=== PATIENT | female | born 1995 | race Caucasian/White ===

== ENCOUNTER 2017-10-24 13:34 | Emergency (ER) | payer OTHER ==
[~2017-10-24] VITALS: Ht 167.6 cm; Wt 68.0 kg
[2017-10-24 13:38] VITALS: BP 122/73
== END 2017-10-24 14:47 | disposition home or self-care (01) ==
LOC: ER 13:37
DX: N61.0 Mastitis without abscess (principal); R51 Headache
CPT/HCPCS: A4606; Z7610

== ENCOUNTER 2018-03-31 20:47 | Emergency (ER) | payer OTHER ==
[~2018-03-31] VITALS: Ht 167.6 cm; Wt 78.0 kg
[2018-03-31 20:56] VITALS: BP 134/75
== END 2018-03-31 22:56 | disposition home or self-care (01) ==
LOC: ER 20:51
DX: L03.031 Cellulitis of right toe (principal)
CPT/HCPCS: A4606; Z7610

== ENCOUNTER 2018-05-30 13:04 | Emergency (ER) | payer OTHER ==
[~2018-05-30] VITALS: Ht 165.1 cm; Wt 86.2 kg
[2018-05-30 13:22] VITALS: BP 128/76
== END 2018-05-30 14:00 | disposition home or self-care (01) ==
LOC: ER 13:06
DX: L03.031 Cellulitis of right toe (principal)
CPT/HCPCS: 99283; A4606; Z7610

== ENCOUNTER 2019-07-17 20:11 | Emergency (ER) | payer OTHER ==
[~2019-07-17] VITALS: Ht 167.6 cm; Wt 77.1 kg
[2019-07-17] MEDS ORDERED: ACETAMINOPHEN 650 MG/20.3 ML UDC ONE (21:04)
[2019-07-17] MEDS: ACETAMINOPHEN 650 MG/20.3 ML UDC PO ONE (21:05)
--- NOTE | 2019-07-17 21:29 | NUR ---
urine collected and sent to the lab
[2019-07-17 22:04] LABS: APPEARANCE,URINE CLEAR (CLEAR); BILIRUBIN,URINE NEGATIVE (NEGATIVE); BLOOD, URINE NEGATIVE Ery/uL (NEGATIVE); COLOR,URINE YELLOW (YELLOW); KETONES,URINE NEGATIVE (NEGATIVE); LEUKOCYTE ESTERASE ,URINE NEGATIVE (NEGATIVE); NITRITE, URINE NEGATIVE (NEGATIVE); PH,URINE 6.5 (5.0-8.0); PROTEIN,URINE NEGATIVE (NEGATIVE); UGLUCOSE NEGATIVE (NEGATIVE); UROBILINOGEN,URINE 0.2 EU/dL (0.2)
--- NOTE | 2019-07-17 22:14 | NUR ---
Patient is resting comfortably in bed with eyes closed. Easily aroused. VSS
[2019-07-17 22:28] VITALS: BP 96/41
--- NOTE | 2019-07-17 22:28 | NUR ---
Patient discharged to home in stable condition. Written and verbal after care instructions given. Patient verbalizes understanding of instruction.
== END 2019-07-17 22:29 | disposition home or self-care (01) ==
LOC: ER 20:11
DX: O26.893 Other specified pregnancy related conditions, third trimester (principal); M54.5 Low back pain; R51 Headache; R42 Dizziness and giddiness; Z3A.35 35 weeks gestation of pregnancy
CPT/HCPCS: 81000-TC